=== PATIENT | male | born 1990 | race Two or more races ===

== ENCOUNTER 2019-06-23 13:57 | Outpatient (CLI) | payer OTHER | END 2019-06-23 13:59 | disposition home or self-care (01) | LOC: RAD 13:57 | DX: R07.89 Other chest pain (principal) ==

== ENCOUNTER 2019-07-14 13:07 | Outpatient (CLI) | payer OTHER | END 2019-07-14 13:08 | disposition home or self-care (01) | LOC: RAD 13:07 | DX: J93.11 Primary spontaneous pneumothorax (principal) ==

== ENCOUNTER 2020-01-28 13:19 | Outpatient (CLI) | payer OTHER | END 2020-01-28 13:31 | disposition home or self-care (01) | LOC: RAD 13:19 | DX: J93.11 Primary spontaneous pneumothorax (principal) ==

== ENCOUNTER 2020-09-29 11:35 | Outpatient (CLI) | payer OTHER | END 2020-09-29 11:49 | disposition home or self-care (01) | LOC: RAD 11:35 | PROVIDERS: ATTEND General Practice | DX: J93.83 Other pneumothorax (principal) ==

== ENCOUNTER 2022-11-07 07:57 | Outpatient (CLI) | payer OTHER | END 2022-11-07 08:08 | disposition home or self-care (01) | LOC: RAD 07:57 | DX: S29.9XXA Unspecified injury of thorax, initial encounter (principal) ==

== ENCOUNTER 2023-06-08 11:58 | Outpatient (CLI) | payer OTHER | END 2023-06-08 12:10 | disposition home or self-care (01) | LOC: TOM 11:58 | PROVIDERS: ATTEND Internal Medicine Pulmonary Disease | DX: R91.8 Other nonspecific abnormal finding of lung field (principal) ==